=== PATIENT | male | born 2000 | race Caucasian/White ===

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

== ENCOUNTER → 2022-07-22 | Outpatient (REF) | payer OTHER, BC ==
[2022-07-22 15:25] LABS: GC DNA AMPLIFICATION NEGATIVE (NEGATIVE)
== END ==
LOC: M LAB REF 12:45
PROVIDERS: ATTEND Internal Medicine
DX: Z72.51 High risk heterosexual behavior (principal)

== ENCOUNTER → 2022-08-18 | Outpatient (CLI) | payer BC, OTHER ==
[~2022-08-18] MED LIST changes: +ISOVUE-370 76% 100ML VIAL As Ordered ONE
== END ==
LOC: M RAD 13:34
PROVIDERS: ATTEND Internal Medicine
DX: R91.8 Other nonspecific abnormal finding of lung field (principal); R16.1 Splenomegaly, not elsewhere classified

== ENCOUNTER → 2022-09-08 | Outpatient (POV) | payer BC, OTHER ==
[~2022-09-08] VITALS: Ht 172.7 cm; Wt 50.0 kg
[~2022-09-08] MED LIST changes: -ISOVUE-370 76% 100ML VIAL As Ordered ONE
[2022-09-08 09:30] VITALS: BP 136/70
== END ==
LOC: M IRPOV 09:16
PROVIDERS: ATTEND Radiology Diagnostic Radiology
DX: Q25.72 Congenital pulmonary arteriovenous malformation (principal); R00.2 Palpitations; R06.02 Shortness of breath; Z88.6 Allergy status to analgesic agent

== ENCOUNTER 2022-09-22 22:57 | Emergency (ER) | payer BC, OTHER ==
[~2022-09-22] VITALS: Ht 172.7 cm; Wt 50.0 kg
[2022-09-23 08:29] VITALS: BP 128/73
== END 2022-09-23 14:32 | disposition home or self-care (01) ==
LOC: M ED 22:57
DX: R45.88 Nonsuicidal self-harm (principal); X78.8XXA Intentional self-harm by other sharp object, initial encounter; J45.909 Unspecified asthma, uncomplicated; F17.200 Nicotine dependence, unspecified, uncomplicated; Z88.6 Allergy status to analgesic agent

== ENCOUNTER → 2022-11-10 | Outpatient (POV) | payer BC, OTHER ==
[~2022-11-10] VITALS: Ht 170.2 cm; Wt 49.0 kg
[2022-11-10 13:00] VITALS: BP 112/63
== END ==
LOC: M IRPOV 12:50
PROVIDERS: ATTEND Radiology Diagnostic Radiology
DX: Q25.72 Congenital pulmonary arteriovenous malformation (principal); Z88.6 Allergy status to analgesic agent

== ENCOUNTER → 2022-11-18 | Outpatient (REF) | payer OTHER | LOC: M LAB REF 11:33 | PROVIDERS: ATTEND Internal Medicine | DX: Q25.72 Congenital pulmonary arteriovenous malformation (principal) ==

== ENCOUNTER → 2022-11-20 | Outpatient (CLI) | payer BC, OTHER | LOC: M LABSMTC 10:30 | PROVIDERS: ATTEND Anesthesiology | DX: Z01.818 Encounter for other preprocedural examination (principal); Z11.52 Encounter for screening for COVID-19 ==

== ENCOUNTER → 2022-11-23 | Outpatient (CLI) | payer BC, OTHER ==
[~2022-11-23] MED LIST changes: +HEPARIN 1,000UNITS/ML 10ML VIAL (FOR RADIOLOGY & DIALYSIS ONLY) As Ordered ONE; +ISOVUE-300 61% 100ML VIAL As Ordered ONE; +LIDOCAINE 1% MDV 20ML VIAL As Ordered ONE; +MIDAZOLAM INJ 2MG/2ML VIAL As Ordered ONE; +NS 1,000 ML IV SCH; +diphenhydrAMINE 50MG/ML VIAL As Ordered ONE; +fentaNYL 100 MCG/2 ML INJECTION As Ordered ONE
[2022-11-23 11:30] VITALS: BP 104/68
== END ==
LOC: M IRPRO 06:34
PROVIDERS: ATTEND Radiology Diagnostic Radiology
DX: Q25.72 Congenital pulmonary arteriovenous malformation (principal); R06.02 Shortness of breath
CPT/HCPCS: 36013; 99152; 99153; C1769; C1887; C1894; J1200; J2250; J3010; Q9967

== ENCOUNTER 2023-01-13 11:54 | Emergency (ER) | payer BC, OTHER ==
[~2023-01-13] VITALS: Ht 170.2 cm; Wt 49.1 kg
[~2023-01-13 11:54] MED LIST changes: -HEPARIN 1,000UNITS/ML 10ML VIAL (FOR RADIOLOGY & DIALYSIS ONLY) As Ordered ONE; -ISOVUE-300 61% 100ML VIAL As Ordered ONE; -LIDOCAINE 1% MDV 20ML VIAL As Ordered ONE; -MIDAZOLAM INJ 2MG/2ML VIAL As Ordered ONE; -NS 1,000 ML IV SCH; -diphenhydrAMINE 50MG/ML VIAL As Ordered ONE; -fentaNYL 100 MCG/2 ML INJECTION As Ordered ONE
[2023-01-13 12:38] LABS: VENOUS BASE EXCESS -2.6 (-2.0-2.0); VENOUS HCO3 22.1 MMOL/L (23.0-27.0); VENOUS O2 SATURATION 87.6 % (60.0-80.0); VENOUS PARTIAL PRESSURE CO2 38.8 mmHg (38.0-50.0); VENOUS PARTIAL PRESSURE O2 54.6 mmHg (30.0-50.0); VENOUS PH 7.374 UNITS (7.330-7.430); VENOUS TOTAL CO2 23.3 MMOL/L (24.0-28.0)
[2023-01-13 12:52] LABS: BASO % 1.1 % (0.0-1.0); EOS # 0.1 10^3/uL (0.0-0.5); EOS % 2.4 % (0.0-3.0); HEMATOCRIT 52.5 % (42.0-52.0); HEMOGLOBIN 17.6 g/dl (13.5-17.5); LYMPH # 1.4 10^3/uL (1.5-5.0); LYMPH % 37.6 % (24.0-44.0); MEAN CORPUSCULAR HEMOGLOBIN 29.4 pg (27.0-33.0); MEAN CORPUSCULAR HGB CONC 33.5 g/dl (32.0-36.5); MEAN CORPUSCULAR VOLUME 87.6 fl (80.0-96.0); MONO # 0.3 10^3/uL (0.0-0.8); MONO % 8.9 % (2.0-8.0); NEUTROPHILS # 1.9 10^3/uL (1.5-8.5); PLATELET COUNT, AUTOMATED 194 10^3/uL (150-450); RED BLOOD COUNT 5.99 10^6/uL (4.30-6.10); WHITE BLOOD COUNT 3.8 10^3/uL (4.0-10.0)
[2023-01-13 13:16] LABS: CPK CREATINE PHOSPHOKINASE 66 U/L (46-171)
[2023-01-13 13:18] LABS: ALBUMIN 4.4 G/DL (3.2-5.2); ALKALINE PHOSPHATASE 75 U/L (46-116); ALT/SGPT 16 U/L (7.0-40); AST/SGOT 13 U/L (<34); BILIRUBIN,DIRECT 0.2 MG/DL (<0.4); BILIRUBIN,TOTAL 0.6 MG/DL (0.3-1.2); BLOOD UREA NITROGEN 11 MG/DL (9-23); CALCIUM LEVEL 9.3 MG/DL (8.5-10.1); CARBON DIOXIDE LEVEL 22 MMOL/L (20-31); CHLORIDE LEVEL 109 MMOL/L (98-107); CK-MB VALUE MASS < 1.0 NG/ML (<3.6); CREATININE FOR GFR 0.73 MG/DL (0.70-1.30); GLUCOSE, FASTING 80 MG/DL (60-100); MB/CK RELATIVE INDEX 1.51 (< OR =4); POTASSIUM SERUM 4.1 MMOL/L (3.5-5.1); SODIUM LEVEL 136 MMOL/L (136-145); THYROID STIMULATING HORMONE 2.906 uIU/ML (0.48-4.17); THYROXINE (T4) 7.5 UG/DL (5.5-11.1); TOTAL PROTEIN 6.7 G/DL (5.7-8.2)
[2023-01-13 13:45] VITALS: BP 125/73
[2023-01-13] MEDS ORDERED: VENTAER INH (14:03)
== END 2023-01-13 14:09 | disposition home or self-care (01) ==
LOC: M ED 11:54
DX: R06.02 Shortness of breath (principal); I45.19 Other right bundle-branch block; J45.909 Unspecified asthma, uncomplicated; F17.200 Nicotine dependence, unspecified, uncomplicated; F10.10 Alcohol abuse, uncomplicated; Z88.0 Allergy status to penicillin; Z88.6 Allergy status to analgesic agent; Z79.52 Long term (current) use of systemic steroids

== ENCOUNTER → 2023-05-14 | Outpatient (CLI) | payer BC, OTHER ==
[~2023-05-14] MED LIST changes: +VENTAER INH
== END ==
LOC: M PLARAD 08:38
DX: I78.0 Hereditary hemorrhagic telangiectasia (principal)

== ENCOUNTER → 2023-09-03 | Outpatient (REF) | payer BC, OTHER ==
[2023-09-03 19:20] LABS: MONO SCRN NEGATIVE (NEGATIVE)
== END ==
LOC: M LAB REF 16:21
PROVIDERS: ATTEND Internal Medicine
DX: R10.13 Epigastric pain (principal); R53.83 Other fatigue; R10.12 Left upper quadrant pain

== ENCOUNTER → 2023-09-07 | Outpatient (CLI) | payer BC, OTHER ==
[~2023-09-07] MED LIST changes: +GASTROGRAFIN SOLUTION 30ML As Ordered ONE; +ISOVUE-370 76% 100ML VIAL As Ordered ONE
== END ==
LOC: M RAD 14:07
PROVIDERS: ATTEND Internal Medicine
DX: R10.13 Epigastric pain (principal)

== ENCOUNTER → 2024-05-10 | Outpatient (REF) ==
[~2024-05-10] MED LIST changes: +FLUO-290 PO; -FLUO10CA18 PO; -GASTROGRAFIN SOLUTION 30ML As Ordered ONE; -ISOVUE-370 76% 100ML VIAL As Ordered ONE
== END ==
LOC: M EMP 12:11
PROVIDERS: ATTEND Family Medicine
DX: Z11.52 Encounter for screening for COVID-19 (principal)

== ENCOUNTER → 2024-05-18 | Outpatient (REF) | LOC: M EMP 10:58 | PROVIDERS: ATTEND Family Medicine | DX: Z11.52 Encounter for screening for COVID-19 (principal) ==

== ENCOUNTER → 2024-11-11 | Outpatient (REF) | payer BC, OTHER | LOC: M LAB REF 14:29 | PROVIDERS: ATTEND Physician Assistant | DX: R19.7 Diarrhea, unspecified (principal) ==

== ENCOUNTER → 2024-12-29 | Outpatient (REF) | payer OTHER, BC | LOC: M LAB REF 11:31 | PROVIDERS: ATTEND Physician Assistant Medical | DX: R19.7 Diarrhea, unspecified (principal) ==

== ENCOUNTER → 2025-04-27 | Outpatient (REF) | payer OTHER, BC ==
[~2025-04-27] MED LIST changes: -PROZ20CA11 PO; +PROZ20CA12 PO
== END ==
LOC: M LAB REF 12:09
PROVIDERS: ATTEND Physician Assistant
DX: J02.9 Acute pharyngitis, unspecified (principal); B34.9 Viral infection, unspecified

== ENCOUNTER → 2025-07-11 | Outpatient (REF) | payer OTHER, BC | LOC: M LAB REF 11:49 | PROVIDERS: ATTEND Physician Assistant | DX: B34.9 Viral infection, unspecified (principal) ==